=== PATIENT | female | born 2000 | race Asian ===

== ENCOUNTER → 2023-05-23 | Outpatient (CLI) | payer OTHER | LOC: M RAD 11:14 | PROVIDERS: ATTEND Advanced Practice Midwife | DX: O99.810 Abnormal glucose complicating pregnancy (principal); Z3A.35 35 weeks gestation of pregnancy ==

== ENCOUNTER 2023-06-26 07:26 | Inpatient (IN) | payer OTHER ==
[2023-06-26] VITALS (41 sets, daily range): BP systolic 101–152; BP diastolic 55–95; O2SAT 98–100
[~2023-06-26] VITALS: Ht 165.1 cm; Wt 74.7 kg
[2023-06-26] MEDS ORDERED: PRENTAB9 PO (07:53)
[2023-06-26] MEDS ORDERED: HOME MED LIST COMPLETE! XX SCH ×2 (07:55)
[2023-06-26] MEDS ORDERED: OXYTOCIN DRIP 30 UNITS in IV 1 EA IV PRN ×4 (09:00)
[2023-06-26] MEDS ORDERED: **PENDING PCN ENTRY XX SCH (09:00)
[2023-06-26] MEDS ORDERED: TRANEXAMIC ACID INJection 1,000 MG in NS 100 ML IV PRN (09:00)
[2023-06-26] MEDS ORDERED: METHYLERGONOVINE MALEATE 0.2MG/ML 1ML VIAL IM PRN (09:00)
[2023-06-26] MEDS ORDERED: LACTATED RINGER'S 1000 ML IV STA (09:00)
[2023-06-26] MEDS ORDERED: OXYTOCIN DRIP 30 UNITS in IV 1 EA IV SCH (09:00)
[2023-06-26] MEDS ORDERED: LIDOCAINE 1% MDV 20ML VIAL INFIL PRN (09:00)
[2023-06-26] MEDS ORDERED: PENICILLIN G POTASSIUM 5 MU IV 5 MU in D5W MINI-BAG PLUS 100 ML IV STA ×2 (09:00→10:14)
[2023-06-26 09:41] LABS: HEMATOCRIT 36.9 % (36.0-47.0); MEAN CORPUSCULAR HEMOGLOBIN 26.8 pg (27.0-33.0); MEAN CORPUSCULAR HGB CONC 32.5 g/dl (32.0-36.5); MEAN CORPUSCULAR VOLUME 82.6 fl (80.0-96.0); PLATELET COUNT, AUTOMATED 229 10^3/uL (150-450); RED BLOOD COUNT 4.47 10^6/uL (4.00-5.40); WHITE BLOOD COUNT 9.9 10^3/uL (4.0-10.0)
[2023-06-26] MEDS: LR 1,000 ML IV SCH ×3 (10:29→23:13)
[2023-06-26] MEDS ORDERED: PEN G POT 3,000,000 UNIT/50 ML 3,000,000 UNIT in IV 1 EA IV SCH (13:00)
[2023-06-26] MEDS: PEN G POT 3,000,000 UNIT/50 ML 3,000,000 UNIT in IV 1 EA IV SCH ×3 (14:33→22:20)
[2023-06-26] MEDS ORDERED: diphenhydrAMINE 50MG/ML VIAL IV PRN (17:10)
[2023-06-26] MEDS ORDERED: EPIDURAL/PCA KEYS XX PRN (17:10)
[2023-06-26] MEDS ORDERED: LR 500 ML IV PRN (17:10)
[2023-06-26] MEDS ORDERED: FENTANYL 2MCG/ML ROPIVACAINE 0.2% IN 0.9% NACL 100ML IVBAG As Ordered ONE (17:10)
[2023-06-26] MEDS ORDERED: FENTANYL/ROPIVACAINE/NACL BAG 100 ML EPIDURAL SCH (17:10)
[2023-06-26] MEDS ORDERED: NALOXONE INJ 0.4MG/1ML VIAL IV PRN (17:10)
[2023-06-26] MEDS ORDERED: ONDANSETRON 4MG 2ML VIAL IV PRN (17:10)
[2023-06-26] MEDS ORDERED: ePHEDrine SULFATE 25 MG/5 ML(5MG/ML) SYRINGE IVP PRN (17:10)
[2023-06-27] VITALS (8 sets, daily range): BP systolic 118–141; BP diastolic 59–73; O2SAT 97–99
[2023-06-27] MEDS ORDERED: IBUPROFEN 600MG TAB PO PRN (00:20)
[2023-06-27] MEDS ORDERED: ONDANSETRON 4MG 2ML VIAL IV PRN (00:20)
[2023-06-27] MEDS ORDERED: ACETAMINOPHEN 500 MG TAB PO PRN (00:20)
[2023-06-27] MEDS ORDERED: OXYTOCIN DRIP 30 UNITS in IV 1 EA IV SCH (00:20)
[2023-06-27] MEDS ORDERED: ACETAMINOPHEN TAB 650MG DOSE (2X325MG) PO PRN (00:20)
[2023-06-27] MEDS ORDERED: DIBUCAINE 1% OINTMENT 30GM TOP PRN (00:20)
[2023-06-27] MEDS ORDERED: DOCUSATE SODIUM 100MG CAPSULE PO PRN (00:20)
[2023-06-27] MEDS ORDERED: METHYLERGONOVINE MALEATE 0.2 MG TAB PO PRN (00:20)
[2023-06-27] MEDS ORDERED: IBUPROFEN 800 MG TAB PO PRN (00:20)
[2023-06-27] MEDS: PRENATAL VITAMINS CHEWABLE TABLET PO SCH (09:04)
[2023-06-28 06:00] VITALS: BP 106/52
[2023-06-28] MEDS ORDERED: INFLUENZA QUADRIVALENT PF VACCINE 0.5ML SYRINGE IM.IMMUN ONE (09:00)
[2023-06-28] MEDS: PRENATAL VITAMINS CHEWABLE TABLET PO SCH (09:38)
== END 2023-06-28 13:40 | disposition home or self-care (01) | DRG 807 ==
LOC: M LDO 07:26 → M LDI 08:56 → M OBS 06-27 02:45
PROVIDERS: ADMIT Advanced Practice Midwife; ATTEND Advanced Practice Midwife
PROC: 10E0XZZ Delivery of Products of Conception, External Approach (ICD-10-PCS; principal; 2023-06-27)
PROC: 0KQM0ZZ Repair Perineum Muscle, Open Approach (ICD-10-PCS; 2023-06-27)
PROC: 10907ZC Drainage of Amniotic Fluid, Therapeutic from Products of Conception, Via Natural or Artificial Opening (ICD-10-PCS; 2023-06-27)
PROC: 0UQMXZZ Repair Vulva, External Approach (ICD-10-PCS; 2023-06-27)
DX: O99.824 Streptococcus B carrier state complicating childbirth (principal); Z37.0 Single live birth; Z3A.40 40 weeks gestation of pregnancy; O71.82 Other specified trauma to perineum and vulva; O70.1 Second degree perineal laceration during delivery; O69.82X0 Labor and delivery complicated by other cord entanglement, without compression, not applicable or unspecified